=== PATIENT | male | born 1965 | race Caucasian/White ===

== ENCOUNTER 2023-01-28 13:29 | Emergency (ER) | payer OTHER ==
[~2023-01-28] VITALS: Ht 170.2 cm; Wt 59.0 kg
[2023-01-28 13:55] VITALS: BP_SYST 126
[2023-01-28 14:49] LABS: BILIRUBIN,URINE NEGATIVE (NEGATIVE); BLOOD, URINE NEGATIVE (NEGATIVE); CLARITY/URINE CLEAR (CLEAR); COLOR,URINE YELLOW (YELLOW); GLUCOSE,URINE NEGATIVE (NEGATIVE); KETONES,URINE NEGATIVE (NEGATIVE); LEUKOCYTE ESTERASE ,URINE NEGATIVE (NEGATIVE); NITRITE, URINE NEGATIVE (NEGATIVE); PH,URINE 7.5 (5.0-8.0); PROTEIN URINE NEGATIVE (NEGATIVE); UROBILINOGEN,URINE 0.2 (0.2-1.0)
[2023-01-28 15:01] LABS: BASOPHILS % (AUTO) 0.4 % (0.0-2.0); EOSINOPHILS % (AUTO) 0.2 % (0.0-4.0); HEMATOCRIT 42.4 % (36-54); HEMOGLOBIN 14.5 g/dL (14.0-18.0); LYMPHOCYTES # (AUTO) 1.3 K/uL (1.0-5.5); LYMPHOCYTES % (AUTO) 22.3 % (20.5-51.5); MEAN CORPUSCULAR HEMOGLOBIN 33 pg (27-31); MEAN CORPUSCULAR HGB CONC 34 % (32-36); MEAN CORPUSCULAR VOLUME 95 fL (79.0-98.0); MONOCYTES # (AUTO) 0.7 K/uL (0.0-1.0); MONOCYTES % (AUTO) 11.3 % (1.7-9.3); NEUTROPHILS # (AUTO) 3.9 K/uL (1.8-7.7); NEUTROPHILS % (AUTO) 65.8 % (40.0-70.0); PLATELET COUNT (AUTO) 255 K/uL (130-430); RED BLOOD CELL COUNT(AUTO) 4.45 MIL/uL (4.2-6.2); RED CELL DISTRIBUTION WIDTH 13.4 % (9.0-15.0); WHITE BLOOD COUNT (AUTO) 5.9 K/uL (4.8-10.8)
[2023-01-28 15:14] LABS: ANION GAP 8 (5-15); CALCIUM 9.3 mg/dL (8.4-11.0); CHLORIDE 101 mmol/L (98-107); CREATININE 0.89 mg/dL (0.55-1.30); GFR AFRICAN AMERICAN 113 mL/min (>90); GLUCOSE 119 mg/dL (70-99); UREA NITROGEN, BLOOD 15 mg/dL (8-21)
[2023-01-28 15:16] LABS: ALANINE AMINOTRANSFERASE 38 U/L (12-78); AMYLASE 65 U/L (0-100); ASPARTATE AMINOTRANSFERASE 24 U/L (10-37); LIPASE 88 U/L (73-393); TOTAL BILIRUBIN 0.6 mg/dL (0.0-1.0)
[2023-01-28 15:17] LABS: C-REACTIVE PROTEIN QUANT < 0.2 mg/dL (0-0.5)
[2023-01-28] MEDS ORDERED: TRAM50TA2 PO (15:51)
[2023-01-28] MEDS ORDERED: IBUP-1971 PO (15:51)
[2023-01-28] MEDS ORDERED: AMOX-423 PO (15:51)
[2023-01-28] MEDS ORDERED: KETOROLAC TROMETHAMINE 60 MG/2 ML VIAL IM ONE (16:00)
[2023-01-28] MEDS ORDERED: HYDROcodone/ACETAMIN 10-325 MG TAB PO ONE (16:00)
[2023-01-28 16:33] VITALS: BP_SYST 136
== END 2023-01-28 16:15 | disposition home or self-care (01) ==
LOC: SED 13:29
DX: K57.32 Diverticulitis of large intestine without perforation or abscess without bleeding (principal); Z88.1 Allergy status to other antibiotic agents
CPT/HCPCS: 99285; 74176; 80053; 82150; 83690; 85025; 86140; 36415; 76376; 96372; 83605; 81003; J1885